=== PATIENT | female | born 1990 | race Hispanic/Latino ===

== ENCOUNTER 2017-06-20 11:33 | Emergency (ER) | payer SELFPAY ==
[2017-06-20 12:32] LABS: BASOPHILS % (AUTO) 0.6 % (0.0-5.0); EOSINOPHILS % (AUTO) 3.1 % (0.0-8.0); HEMATOCRIT 34.1 % (36-48); LYMPHOCYTES % (AUTO) 21.1 % (21.0-51.0); MEAN CORPUSCULAR HEMOGLOBIN 30.1 pg (27.0-33.0); MEAN CORPUSCULAR HGB CONC 35.5 g/dL (32.0-36.0); MEAN CORPUSCULAR VOLUME 84.8 fL (79-99); MONOCYTES % (AUTO) 5.8 % (3.0-13.0); NEUTROPHILS % (AUTO) 69.4 % (40.0-77.0); PLATELET COUNT (AUTO) 305 K/uL (130-400); RED BLOOD CELL COUNT(AUTO) 4.03 MIL/uL (4.00-5.50); RED CELL DISTRIBUTION WIDTH 13.4 % (11.0-15.5); WHITE BLOOD COUNT (AUTO) 5.8 K/uL (4.8-10.8)
== END 2017-06-20 13:38 | disposition home or self-care (01) ==
LOC: EDH 11:33
DX: N93.8 Other specified abnormal uterine and vaginal bleeding (principal)
CPT/HCPCS: 36415; 84702; 85025; 86900; 86901

== ENCOUNTER 2021-02-04 08:50 | Emergency (ER) | payer MEDICAID ==
[~2021-02-04] VITALS: Ht 144.8 cm; Wt 113.4 kg
[2021-02-04 09:28] LABS: BASOPHILS % (AUTO) 0.2 % (0.0-5.0); EOSINOPHILS % (AUTO) 0.5 % (0.0-8.0); HEMATOCRIT 35.2 % (36-48); LYMPHOCYTES % (AUTO) 8.7 % (21.0-51.0); MEAN CORPUSCULAR HEMOGLOBIN 28.5 pg (27.0-33.0); MEAN CORPUSCULAR HGB CONC 33.2 g/dL (32.0-36.0); MEAN CORPUSCULAR VOLUME 85.6 fL (79-99); MONOCYTES % (AUTO) 3.9 % (3.0-13.0); NEUTROPHILS % (AUTO) 86.3 % (40.0-77.0); PLATELET COUNT (AUTO) 249 K/uL (130-400); RED BLOOD CELL COUNT(AUTO) 4.11 MIL/uL (4.00-5.50); RED CELL DISTRIBUTION WIDTH 13.1 % (11.0-15.5); WHITE BLOOD COUNT (AUTO) 9.1 K/uL (4.8-10.8)
[2021-02-04 10:21] LABS: ALBUMIN 3.1 g/dL (3.5-5.0); BILIRUBIN,TOTAL 0.5 mg/dL (0.2-1.0); CREATININE 0.6 mg/dL (0.5-1.5); POTASSIUM 3.9 mmol/L (3.5-5.1); TOTAL PROTEIN, SERUM 6.7 g/dL (6.0-8.3)
[2021-02-04 10:40] VITALS: BP 134/79
[2021-02-04] MEDS ORDERED: ACET-66 PO (10:50)
== END 2021-02-04 11:56 | disposition home or self-care (01) ==
LOC: EDH 08:50
DX: O20.0 Threatened abortion (principal); Z3A.14 14 weeks gestation of pregnancy; Z98.890 Other specified postprocedural states
CPT/HCPCS: 36415; 76805; 80053; 84702; 85025; 86850; 86900; 86901

== ENCOUNTER 2021-03-07 05:20 | Emergency (ER) | payer MEDICAID ==
[~2021-03-07] VITALS: Ht 144.8 cm; Wt 77.1 kg
[~2021-03-07 05:20] MED LIST: ACET-66 PO
[2021-03-07 06:09] LABS: APPEARANCE,URINE Cloudy (CLEAR); BILIRUBIN,URINE Negative (NEGATIVE); COLOR,URINE Yellow (YELLOW); GLUCOSE, URINE (UA) Negative (NEGATIVE); KETONES,URINE 15 mg/dL (NEGATIVE); LEUKOCYTE ESTERASE ,URINE Trace (NEGATIVE); NITRATE,URINE Negative (NEGATIVE); OCCULT BLOOD,URINE Negative (NEGATIVE); PH,URINE 6.5 (5.0-8.0); PROTEIN,URINE Negative (NEGATIVE)
[2021-03-07 06:14] LABS: BACTERIA,URINE Few /HPF (None Seen); MUCUS,URINE Rare LPF (None Seen); RBC,URINE 0-1 /HPF (0-1)
[2021-03-07 07:48] VITALS: BP 126/78
== END 2021-03-07 07:50 | disposition home or self-care (01) ==
LOC: EDH 05:20
DX: O26.892 Other specified pregnancy related conditions, second trimester (principal); R10.2 Pelvic and perineal pain; Z98.890 Other specified postprocedural states; Z3A.18 18 weeks gestation of pregnancy
CPT/HCPCS: 76805; 81001

== ENCOUNTER 2021-06-17 02:43 | Inpatient (IN) | payer MEDICAID ==
[~2021-06-17] VITALS: Ht 144.8 cm; Wt 85.7 kg
[2021-06-17] MEDS ORDERED: LACTATED RINGERS 1000ML 1,000 ML IV SCH ×2 (03:00→04:30)
[2021-06-17 03:15] LABS: APPEARANCE,URINE CLEAR (CLEAR); BILIRUBIN,URINE NEGATIVE (NEGATIVE); COLOR,URINE YELLOW (YELLOW); GLUCOSE, URINE (UA) NEGATIVE (NEGATIVE); KETONES,URINE 15 mg/dL (NEGATIVE); LEUKOCYTE ESTERASE ,URINE NEGATIVE (NEGATIVE); NITRATE,URINE NEGATIVE (NEGATIVE); OCCULT BLOOD,URINE LARGE (NEGATIVE); PROTEIN,URINE TRACE mg/dL (NEGATIVE); UROBILINOGEN,URINE 0.2 mg/dL (0.2-1.0)
[2021-06-17 03:21] LABS: RBC,URINE TNTC /HPF (0-1)
[2021-06-17 03:22] LABS: BACTERIA,URINE Few /HPF (None Seen); SQUAMOUS EPITHELIAL CELL,UR Many /HPF (0-2); WBC,URINE 0-1 /HPF (0-1)
[2021-06-17 03:24] LABS: AMPHET/METH SCREEN,URINE NEGATIVE (NEGATIVE); BARBITURATE SCREEN, URINE NEGATIVE (NEGATIVE); BENZODIAZEPINES SCREEN,URINE NEGATIVE (NEGATIVE); CANNABINOID SCREEN,URINE NEGATIVE (NEGATIVE); COCAINE SCREEN,URINE NEGATIVE (NEGATIVE); OPIATE SCREEN,URINE NEGATIVE (NEGATIVE); PHENCYCLIDINE SCREEN,URINE NEGATIVE (NEGATIVE)
[2021-06-17] MEDS ORDERED: CEFTRIAXONE 1G VIAL ONE (04:22)
[2021-06-17] MEDS ORDERED: TERBUTALINE SULFATE VIAL 1MG/ML SQ ONE (04:22)
[2021-06-17 04:25] VITALS: BP 110/56
[2021-06-17] MEDS ORDERED: MAGNESIUM 4GM PREMIX 100ML 100 ML IV SCH (04:30)
[2021-06-17] MEDS ORDERED: CEFTRIAXONE 1G VIAL IVP ONE (04:30)
[2021-06-17] MEDS ORDERED: CALCIUM GLUC 1GM/10ML VIAL IV PRN (04:30)
[2021-06-17] MEDS: TERBUTALINE SULFATE VIAL 1MG/ML SQ SCH ×2 (04:36→05:01)
[2021-06-17] MEDS ORDERED: MAGNESIUM 4GM PREMIX 100ML 100 ML IV ONE (08:51)
[2021-06-17] MEDS: MAGNESIUM SULFATE 40GM/1000ML 1,000 ML IV PRN (09:20)
[2021-06-17] MEDS ORDERED: CELESTONE SOLUSPAN 6 MG/ML 5ML VIAL IM SCH (09:30)
[2021-06-17] MEDS: AMPICILLIN 2GM+NS 100ML IV SCH ×3 (09:53→22:26)
[2021-06-17 12:52] LABS: HEMATOCRIT 31.7 % (36-48); MEAN CORPUSCULAR HEMOGLOBIN 25.3 pg (27.0-33.0); MEAN CORPUSCULAR HGB CONC 31.5 g/dL (32.0-36.0); MEAN CORPUSCULAR VOLUME 80.3 fL (79-99); RED BLOOD CELL COUNT(AUTO) 3.95 MIL/uL (4.00-5.50); RED CELL DISTRIBUTION WIDTH 14.2 % (11.0-15.5); WHITE BLOOD COUNT (AUTO) 11.7 K/uL (4.8-10.8)
[2021-06-18] MEDS: AMPICILLIN 2GM+NS 100ML IV SCH (03:49)
[2021-06-18] MEDS: MAGNESIUM SULFATE 40GM/1000ML 1,000 ML IV PRN (03:51)
== END 2021-06-18 11:34 | disposition home or self-care (01) | DRG 566 ==
LOC: EDH 02:43 → LDH 02:44 → OBSVTOIN 02:44
PROVIDERS: ADMIT Obstetrics & Gynecology; ATTEND Obstetrics & Gynecology
DX: O26.613 Liver and biliary tract disorders in pregnancy, third trimester (principal); Z3A.32 32 weeks gestation of pregnancy
CPT/HCPCS: 36415; 80305; 81001; 85027; 86592; 86850; 86900; 86901; 87340; 96360; 96361; 96372; G0378; J0290; J0696; J0702; J3105; J3475; J7120

== ENCOUNTER 2021-07-24 00:16 | Inpatient (IN) | payer MEDICAID ==
[~2021-07-24] VITALS: Ht 144.8 cm; Wt 92.1 kg
[2021-07-24] MEDS ORDERED: LACTATED RINGERS 1000ML 1,000 ML IV SCH ×2 (00:30→09:00)
[2021-07-24 00:54] LABS: BILIRUBIN,URINE Negative (NEGATIVE); COLOR,URINE Yellow (YELLOW); GLUCOSE, URINE (UA) Negative (NEGATIVE); KETONES,URINE Negative (NEGATIVE); LEUKOCYTE ESTERASE ,URINE Small (NEGATIVE); NITRATE,URINE Negative (NEGATIVE); OCCULT BLOOD,URINE Negative (NEGATIVE); PH,URINE 6.5 (5.0-8.0); PROTEIN,URINE Negative (NEGATIVE)
[2021-07-24 01:09] LABS: APPEARANCE,URINE CLOUDY (CLEAR)
[2021-07-24 01:19] LABS: BACTERIA,URINE Few /HPF (None Seen)
[2021-07-24] MEDS ORDERED: MEPERIDINE-PF 50 MG/ML SYG IVP PRN (02:00)
[2021-07-24] MEDS ORDERED: PROMETHAZINE HCL 25 MG/ML 1ML AMPULE IM PRN (02:00)
[2021-07-24 02:30] LABS: MEAN CORPUSCULAR HEMOGLOBIN 25.4 pg (27.0-33.0); MEAN CORPUSCULAR HGB CONC 31.3 g/dL (32.0-36.0); MEAN CORPUSCULAR VOLUME 81.2 fL (79-99); RED BLOOD CELL COUNT(AUTO) 3.94 MIL/uL (4.00-5.50); RED CELL DISTRIBUTION WIDTH 15.3 % (11.0-15.5)
[2021-07-24] MEDS: LACTATED RINGERS 1000ML 1,000 ML IV SCH (02:44)
[2021-07-24] MEDS ORDERED: CEFAZOLIN SODIUM 1 GM VIAL ONE (07:36)
[2021-07-24] MEDS ORDERED: ONDANSETRON 4MG INJ ONE (07:42)
[2021-07-24] MEDS ORDERED: EPINEPHRINE PF 1MG AMP ONE (07:42)
[2021-07-24] MEDS ORDERED: MORPHINE PF 100MG/10ML AMP IV ONE (07:42)
[2021-07-24] MEDS ORDERED: CEFAZOLIN SODIUM 2 GM VIAL IV ONE (07:50)
[2021-07-24] MEDS ORDERED: GLYCOPYRROLATE 1 MG/5 ML SYRINGE ONE (08:09)
[2021-07-24] MEDS ORDERED: OXYTOCIN 10 UNIT/1ML 10ML VIAL ONE (08:14)
[2021-07-24] MEDS ORDERED: PROPOFOL 10 MG/ML 20ML VIAL IV ONE (08:18)
[2021-07-24] MEDS ORDERED: MIDAZOLAM HCL 1 MG/ML 2ML VIAL ONE (08:37)
[2021-07-24] MEDS ORDERED: OXYTOCIN-LR 20 UNITS/1000 ML 1,000 ML IV PRN (09:00)
[2021-07-24] MEDS ORDERED: CEFAZOLIN SODIUM 1 GM VIAL IVP PRN (09:00)
[2021-07-24] MEDS ORDERED: 0.9%NACL 10ML VIAL IVP PRN (09:00)
[2021-07-24 11:21] LABS: HEMATOCRIT 30.2 % (36-48)
[2021-07-24 11:30] VITALS: BP 100/56
[2021-07-24] MEDS ORDERED: EPHEDRINE SULFATE 50 MG/ML AMPULE IVP PRN ×2 (12:00)
[2021-07-24] MEDS ORDERED: DiphenhydrAMINE HCL 50 MG/ML VIAL IVP PRN ×2 (12:00)
[2021-07-24] MEDS ORDERED: MORPHINE 2 MG SYG IVP PRN (12:00)
[2021-07-24] MEDS ORDERED: NALOXONE HCL 0.4 MG/1 ML ML IVP PRN ×4 (12:00)
[2021-07-24] MEDS ORDERED: ONDANSETRON 4MG INJ IVP PRN (12:00)
[2021-07-24] MEDS: PROMETHAZINE HCL 25 MG/ML 1ML AMPULE IM PRN (12:24)
[2021-07-24] MEDS: MEPERIDINE-PF 75 MG/ML SYG IM PRN (12:25)
[2021-07-24 16:00] VITALS: BP 107/57
[2021-07-24] MEDS ORDERED: LORATADINE 10 MG TABLET PO SCH (16:00)
[2021-07-24] MEDS ORDERED: DIPH,PERTUSS(ACELL),TET VAC/PF 0.5 ML VIAL IM ONE ×2 (16:32→17:00)
[2021-07-24] MEDS ORDERED: MEASLES/MUMPS/RUBELLA VACCINE, LIVE 0.5 ML/VIAL SQ ONE ×2 (16:33→17:00)
[2021-07-24] MEDS: DEXTROSE 5 %-0.45 % NACL 1,000 ML IV PRN (18:28)
[2021-07-24 19:02] VITALS: BP 100/54
[2021-07-24 23:15] VITALS: BP 104/57
[2021-07-25] MEDS: LACTATED RINGERS 1000ML 1,000 ML IV SCH (00:45)
[2021-07-25 03:16] VITALS: BP 101/52
[2021-07-25] MEDS: DEXTROSE 5 %-0.45 % NACL 1,000 ML IV PRN (03:24)
[2021-07-25] MEDS: PROMETHAZINE HCL 25 MG/ML 1ML AMPULE IM PRN (03:25)
[2021-07-25] MEDS: MEPERIDINE-PF 75 MG/ML SYG IM PRN (03:25)
[2021-07-25 06:24] LABS: HEMATOCRIT 26.1 % (36-48); MEAN CORPUSCULAR HEMOGLOBIN 24.7 pg (27.0-33.0); MEAN CORPUSCULAR HGB CONC 30.7 g/dL (32.0-36.0); MEAN CORPUSCULAR VOLUME 80.6 fL (79-99); PLATELET COUNT (AUTO) 172 K/uL (130-400); RED BLOOD CELL COUNT(AUTO) 3.24 MIL/uL (4.00-5.50); RED CELL DISTRIBUTION WIDTH 15.3 % (11.0-15.5); WHITE BLOOD COUNT (AUTO) 9.5 K/uL (4.8-10.8)
[2021-07-25 07:35] VITALS: BP 104/70
[2021-07-25] MEDS ORDERED: HYDROCODONE/ACETAMINOPHEN 5/325 MG TAB PO PRN (09:30)
[2021-07-25] MEDS ORDERED: BISACODYL 10 MG SUPP.RECT RC PRN (09:30)
[2021-07-25] MEDS ORDERED: ACETAMINOPHEN WITH CODEINE 1 TAB TAB PO PRN (09:30)
[2021-07-25] MEDS ORDERED: ACETAMINOPHEN 500 MG TABLET PO PRN (09:30)
[2021-07-25] MEDS: SIMETHICONE 80 MG TAB.CHEW PO PRN ×3 (09:31→21:03)
[2021-07-25] MEDS: IBUPROFEN 800 MG TAB PO SCH ×2 (09:36→17:30)
[2021-07-25 11:45] VITALS: BP_SYST 101; BP_SYST 131; BP_DIAS 60; BP_DIAS 82
[2021-07-25 16:53] VITALS: BP 115/69
[2021-07-25 19:30] VITALS: BP 125/68
[2021-07-25] MEDS: DOCUSATE SODIUM 100 MG CAP PO SCH (21:03)
[2021-07-25 23:17] VITALS: BP 120/60
[2021-07-26] MEDS: LACTATED RINGERS 1000ML 1,000 ML IV SCH (00:31)
[2021-07-26] MEDS: IBUPROFEN 800 MG TAB PO SCH ×2 (01:32→08:15)
[2021-07-26 04:19] VITALS: BP 108/66
[2021-07-26 07:20] VITALS: BP 107/62
[2021-07-26] MEDS: SIMETHICONE 80 MG TAB.CHEW PO PRN (08:13)
[2021-07-26] MEDS: DOCUSATE SODIUM 100 MG CAP PO SCH (08:14)
[2021-07-26] MEDS ORDERED: ACET-2079 PO (10:51)
[2021-07-26] MEDS ORDERED: FERS325 PO (10:51)
[2021-07-26 11:45] VITALS: BP 116/60
== END 2021-07-26 12:10 | disposition home or self-care (01) | DRG 540 ==
LOC: EDH 00:18 → LDH 00:29 → OBSVTOIN 00:29 → WSH 11:30
PROVIDERS: ADMIT Obstetrics & Gynecology; ATTEND Obstetrics & Gynecology
PROC: 0DNW0ZZ Release Peritoneum, Open Approach (ICD-10-PCS; 2021-07-24)
PROC: 3E0134Z Introduction of Serum, Toxoid and Vaccine into Subcutaneous Tissue, Percutaneous Approach (ICD-10-PCS; 2021-07-24)
PROC: 3E0234Z Introduction of Serum, Toxoid and Vaccine into Muscle, Percutaneous Approach (ICD-10-PCS; 2021-07-24)
PROC: 10D00Z1 Extraction of Products of Conception, Low, Open Approach (ICD-10-PCS; principal; 2021-07-24 08:00)
DX: O34.211 Maternal care for low transverse scar from previous cesarean delivery (principal); K66.0 Peritoneal adhesions (postprocedural) (postinfection); O99.62 Diseases of the digestive system complicating childbirth; Z37.0 Single live birth; Z3A.37 37 weeks gestation of pregnancy; Z23 Encounter for immunization
CPT/HCPCS: 36415; 59510; 81001; 85014; 85018; 85027; 86592; 86850; 86900; 86901; 86923; 87088; 87340; 90707; 90715; 96360; 96361; A4344; G0378; J0171; J0690; J1200; J2175; J2250; J2274; J2405; J2550; J2590; J2704; J3490; J7120